=== PATIENT | male | born 1975 | race Caucasian/White ===

== ENCOUNTER 2021-09-10 15:04 | Emergency (ER) | payer MEDICAID, SELFPAY ==
[2021-09-10] MEDS ORDERED: Ibuprofen 800 MG TAB ONE (16:42)
== END 2021-09-10 16:50 ==
LOC: MADERS 15:04
DX: S92.324A Nondisplaced fracture of second metatarsal bone, right foot, initial encounter for closed fracture (principal); W18.2XXA Fall in (into) shower or empty bathtub, initial encounter